=== PATIENT | female | born 1955 | race Caucasian/White ===

== ENCOUNTER 2019-09-02 16:51 | Emergency (ER) | payer MEDICARE, MEDICAID ==
[~2019-09-02] VITALS: Ht 170.2 cm; Wt 96.5 kg
[~2019-09-02 16:51] MED LIST: CEPH-368 PO; CYCL5TAB PO; IBUP1TAB11 PO; IBUP200C8 PO; OXYC-302 PO
--- NOTE | 2019-09-02 17:03 | NUR ---
PT AMBULATED TO THE ROOM W/ A STEADY GAIT.
--- NOTE | 2019-09-02 17:18 | NUR ---
THIS IS A 64 YO F W/ C/O NIGHTMARES X2 MONTHS. PT STATES THAT SHE WAKES UP AND DOESNT REMEMBER HER DREAM. WAKES UP IN COLD SWEAT AND W/ PALPITATIONS. PT RESTING ON GURNEY W/ CALL LIGHT IN REACH AND SIDE RAILS UPX2. NADN. [employer] AT BEDSIDE FOR ED EVAL.
--- NOTE | 2019-09-02 17:34 | NUR ---
LAB IN ROOM.
[2019-09-02 17:42] LABS: BASOPHILS # (AUTO) 0.05 x10^3/uL (0-0.1); BASOPHILS % (AUTO) 1 % (0-1); EOSINOPHILS # (AUTO) 0.11 x10^3/uL (0-0.4); EOSINOPHILS % (AUTO) 1 % (1-7); LYMPHOCYTES # (AUTO) 2.24 x10^3/uL (1-3.4); LYMPHOCYTES % (AUTO) 28 % (22-44); MD NO; MEAN CORPUSCULAR HEMOGLOBIN 33.8 pg (27.0-34.8); MEAN CORPUSCULAR HGB CONC 34.5 g/dL (32.4-35.8); MEAN CORPUSCULAR VOLUME 97.9 fL (80-100); MEAN PLATELET VOLUME 6.9 fL (7.4-10.4); MONOCYTES # (AUTO) 0.51 x10^3/uL (0.2-0.8); MONOCYTES % (AUTO) 6 % (2-9); NEUTROPHILS # (AUTO) 4.98 x10^3/uL (1.8-6.8); NEUTROPHILS % (AUTO) 63 % (42-75); PLATELET COUNT 279 x10^3/uL (130-400); RED BLOOD COUNT 4.22 x10^6/uL (3.82-5.3); RED CELL DISTRIBUTION WIDTH 12.5 % (9.6-15.2)
--- NOTE | 2019-09-02 17:44 | NUR ---
RAD IN ROOM.
[2019-09-02 17:52] LABS: ALANINE AMINOTRANSFERASE 31 U/L (12-78); ALBUMIN 3.6 g/dL (3.4-5.0); ANION GAP 8 mmol/L (5-15); CALCIUM 8.9 mg/dL (8.5-10.1); CHLORIDE 109 mmol/L (98-107); CREATININE 0.95 mg/dL (0.55-1.02)
[2019-09-02 17:56] LABS: ALKALINE PHOSPHATASE 103 U/L (45-117); BILIRUBIN,TOTAL 0.2 mg/dL (0.2-1.0); FREE T4 (FREE THYROXINE) 0.96 ng/dL (0.76-1.46); TOTAL PROTEIN 6.9 g/dL (6.4-8.2); TROPONIN I < 0.015 ng/mL (0.000-0.045)
--- NOTE | 2019-09-02 18:05 | NUR ---
ALL TESTS RESULTED. PT IS UP FOR RECHECK AT THIS TIME.
--- NOTE | 2019-09-02 18:19 | NUR ---
AT BEDSIDE FOR EVAL.
--- NOTE | 2019-09-02 18:38 | NUR ---
PT TAKEN TO CT.
--- NOTE | 2019-09-02 19:13 | NUR ---
ASSISTED PT WITHTRANSFER TO ED ROOM 4, PT RESTING ON GURNEY, MONITORS APPLIED,SIDERAIL SUP X2, CALL LIGHT WITHIN REACH. AWAITING CT RESULT
[2019-09-02] MEDS ORDERED: OMNIPAQUE 350 MG/ML, 75ML BOTTLE ONE (19:16)
[2019-09-02 20:20] VITALS: BP 118/67
== END 2019-09-02 20:26 | disposition home or self-care (01) ==
LOC: ED 19:13
DX: R51 Headache (principal); R00.2 Palpitations; I51.7 Cardiomegaly; R94.31 Abnormal electrocardiogram [ECG] [EKG]; R06.02 Shortness of breath; R07.9 Chest pain, unspecified; G47.00 Insomnia, unspecified
CPT/HCPCS: 36415; 70450; 70496; 71045; 80053; 84439; 84443; 84484; 85025; 93005; 99285; Q9967

== ENCOUNTER 2019-10-15 14:36 | Emergency (ER) | payer MEDICARE, MEDICAID ==
[~2019-10-15] VITALS: Ht 177.8 cm; Wt 95.8 kg
--- NOTE | 2019-10-15 16:07 | NUR ---
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 NO ACUTE DISTRESS NOTED.
[2019-10-15 16:14] LABS: ALBUMIN 3.6 g/dL (3.4-5.0); ANION GAP 7 mmol/L (5-15); CALCIUM 9.2 mg/dL (8.5-10.1); CHLORIDE 108 mmol/L (98-107)
[2019-10-15 16:15] LABS: BASOPHILS # (AUTO) 0.04 x10^3/uL (0-0.1); BASOPHILS % (AUTO) 1 % (0-1); EOSINOPHILS # (AUTO) 0.09 x10^3/uL (0-0.4); EOSINOPHILS % (AUTO) 1 % (1-7); LYMPHOCYTES % (AUTO) 23 % (22-44); MD NO; MEAN CORPUSCULAR HEMOGLOBIN 32.7 pg (27.0-34.8); MEAN CORPUSCULAR HGB CONC 33.3 g/dL (32.4-35.8); MEAN CORPUSCULAR VOLUME 98.1 fL (80-100); MEAN PLATELET VOLUME 7.2 fL (7.4-10.4); MONOCYTES # (AUTO) 0.43 x10^3/uL (0.2-0.8); MONOCYTES % (AUTO) 5 % (2-9); NEUTROPHILS # (AUTO) 5.79 x10^3/uL (1.8-6.8); NEUTROPHILS % (AUTO) 70 % (42-75); PLATELET COUNT 304 x10^3/uL (130-400); RED BLOOD COUNT 4.54 x10^6/uL (3.82-5.3); RED CELL DISTRIBUTION WIDTH 12.6 % (9.6-15.2)
[2019-10-15 16:18] LABS: ALANINE AMINOTRANSFERASE 34 U/L (12-78); ALKALINE PHOSPHATASE 121 U/L (45-117); BILIRUBIN,TOTAL 0.2 mg/dL (0.2-1.0); CREATININE 1.06 mg/dL (0.55-1.02); TOTAL PROTEIN 7.3 g/dL (6.4-8.2)
[2019-10-15 18:12] VITALS: BP 130/79
== END 2019-10-15 18:15 | disposition home or self-care (01) ==
LOC: ED 17:30
DX: R19.7 Diarrhea, unspecified (principal); R10.9 Unspecified abdominal pain; K92.1 Melena
CPT/HCPCS: 36415; 76700; 80053; 85025; 86850; 86900; 99284

== ENCOUNTER → 2019-12-01 | Outpatient (CLI) | payer MEDICARE, MEDICAID | END | disposition home or self-care (01) | LOC: RAD 11:59 | PROVIDERS: ATTEND Internal Medicine Gastroenterology | DX: K92.1 Melena (principal); R10.84 Generalized abdominal pain; R14.0 Abdominal distension (gaseous); F41.9 Anxiety disorder, unspecified | CPT/HCPCS: 74018 ==

== ENCOUNTER 2020-01-28 20:29 | Emergency (ER) | payer MEDICARE, MEDICAID ==
[~2020-01-28] VITALS: Ht 170.2 cm; Wt 97.4 kg
[2020-01-28 20:31] VITALS: BP 167/89
[2020-01-28] MEDS ORDERED: FAMOTIDINE 20 MG TABLET PO ONE (21:00)
[2020-01-28] MEDS ORDERED: FAMOTIDINE 10 MG TAB ONE (21:23)
== END 2020-01-28 21:42 | disposition home or self-care (01) ==
LOC: ED 21:22
DX: L50.9 Urticaria, unspecified (principal)
CPT/HCPCS: 99284; J7512; Q0177